=== PATIENT | female | born 1945 | race Caucasian/White ===

== ENCOUNTER 2021-09-19 14:31 | Outpatient (CLI) | payer MEDICARE, BC | END 2021-09-19 14:32 | disposition home or self-care (01) | LOC: CSHMAMMO 14:31 | PROVIDERS: ATTEND Internal Medicine | DX: Z12.31 Encounter for screening mammogram for malignant neoplasm of breast (principal); Z80.3 Family history of malignant neoplasm of breast | CPT/HCPCS: 77063; 77067 ==

== ENCOUNTER 2022-04-05 13:40 | Outpatient (CLI) | payer MEDICARE, BC | END 2022-04-05 13:41 | disposition home or self-care (01) | LOC: CSHMAMMO 13:40 | PROVIDERS: ATTEND Internal Medicine | DX: M81.0 Age-related osteoporosis without current pathological fracture (principal); M85.89 Other specified disorders of bone density and structure, multiple sites | CPT/HCPCS: 77080 ==

== ENCOUNTER 2022-04-05 14:33 | Outpatient (CLI) | payer MEDICARE, BC | END 2022-04-05 14:34 | disposition home or self-care (01) | LOC: CSHRAD 14:33 | PROVIDERS: ATTEND Internal Medicine Rheumatology | DX: M25.561 Pain in right knee (principal); M25.562 Pain in left knee; M17.0 Bilateral primary osteoarthritis of knee; M81.0 Age-related osteoporosis without current pathological fracture; M85.89 Other specified disorders of bone density and structure, multiple sites | CPT/HCPCS: 73565 ==

== ENCOUNTER 2023-11-20 14:37 | Outpatient (CLI) | payer MEDICARE | END 2023-11-20 14:38 | disposition home or self-care (01) | LOC: CSHULT 14:37 | PROVIDERS: ATTEND Physician Assistant Surgical | DX: M79.89 Other specified soft tissue disorders (principal); Z86.718 Personal history of other venous thrombosis and embolism; Z86.711 Personal history of pulmonary embolism; I82.402 Acute embolism and thrombosis of unspecified deep veins of left lower extremity ==

== ENCOUNTER 2024-06-17 12:28 | Outpatient (CLI) | payer MEDICARE | END 2024-06-17 12:29 | disposition home or self-care (01) | LOC: CSHMAMMO 12:28 | PROVIDERS: ATTEND Internal Medicine | DX: Z12.31 Encounter for screening mammogram for malignant neoplasm of breast (principal); Z80.3 Family history of malignant neoplasm of breast; Z91.89 Other specified personal risk factors, not elsewhere classified | CPT/HCPCS: 77063; 77067 ==